=== PATIENT | female | born 1990 | race Caucasian/White ===

== ENCOUNTER 2024-01-23 02:58 | Emergency (ER) | payer SELFPAY ==
[2024-01-23 04:10] LABS: #Basophils 0.05 10x3/uL (0.0-0.2); #Eosinphils Less than 0.03 10x3/uL (0.0-0.7); %Basophils 0.3 % (0.0-1.0); %Eosinophils 0.1 % (0.0-10.0); %Lymphocytes 14.7 % (21.0-51.0); %Neutrophils 83.6 % (42.0-75.0); Hematocrit 39.8 % (36.0-47.0); Hemoglobin 14.6 g/dL (12.0-16.0); Mean Corpuscular HGB CONC 36.7 g/dL (32.0-36.0); Mean Corpuscular Hemoglobin 34.1 pg (27.0-31.0); Mean Platelet Volume 9.5 fL (7.4-10.4); Platelet Count 327 10x3/uL (130-400); RBC Distribution Width 11.7 % (11.5-14.5); Red Blood Cell (RBC) Count 4.28 mill/uL (4.20-5.40)
[2024-01-23 04:31] LABS: Lipase 7 U/L (8-78)
[2024-01-23 04:33] LABS: ALT (SGPT) 10 U/L (8-55); AST (SGOT) 29 U/L (5-34); Albumin 4.6 g/dL (3.5-5.0); Alkaline Phosphatase 69 U/L (40-110); Anion Gap 29 mmol/L (10-20); BUN (Urea Nitrogen) 18 mg/dL (7.0-18.7); Bilirubin, Total 0.5 mg/dL (0.2-1.2); Calc. Creatinine Clearance 0 mL/min (70-130); Calcium 9.6 mg/dL (7.8-10.44); Carbon Dioxide 12 mmol/L (22-29); Chloride 104 mmol/L (98-107); Estimated GFR 99; Globulin 3.9 g/dL (2.4-3.5); Glucose 64 mg/dL (70-105); Potassium 3.9 mmol/L (3.5-5.1); Protein, Total 8.5 g/dL (6.0-8.3); Sodium 141 mmol/L (136-145)
[2024-01-23 04:34] LABS: Acetaminophen Less than 10 mcg/mL (10.0-30.0); Alcohol 285.4 mg/dL (Less than 10); Salicylate Less than 8.0 mg/dL (15.0-30.0)
[2024-01-23] MEDS ORDERED: Ondansetron PF 4 MG/2 ML Vial ONE (04:46)
[2024-01-23] MEDS ORDERED: Ketorolac Tromethamine 30 MG (1 mL) VIAL ONE ×2 (04:46→08:21)
[2024-01-23] MEDS ORDERED: Lidocaine 2% Viscous 10 mL, Alum & Magn 30 mL SSW SCH (08:00)
[2024-01-23 08:31] LABS: Amphetamine Not Detected (NotDetected); Barbiturates Screen Not Detected (NotDetected); Benzodiazepine Screen Not Detected (NotDetected); Cocaine Metabolite Screen Not Detected (NotDetected); Methadone Not Detected (NotDetected); Methamphetamine Not Detected (NotDetected); Opiate Screen Not Detected (NotDetected); Oxycodone Screen Not Detected (NotDetected); Phencyclidine (PCP) Not Detected (NotDetected); THC/Cannabinoid Screen Not Detected (NotDetected); Tricyclic Screen Not Detected (NotDetected)
[2024-01-23 08:34] LABS: Bilirubin Negative (Negative); Blood, Urine 1+ (Negative); CAUTI Indications for Culture < 2yrs of age; Clarity Clear (Clear); Glucose, Urine (Dipstick) Normal (Negative); Ketone, Urine 100 mg/dL (Negative); Leukocyte Negative Leu/uL (Negative); Nitrite Negative (Negative); Protein, Urine (Dipstick) 100 mg/dL (Neg-Trace); RBC/HPF 0-3 HPF (0-3); Squamous Epithelial 0-3 HPF (0-3); Urobilinogen Normal mg/dL (Less than 2); pH, Urine 5.5 (5.0-9.0)
[2024-01-23 08:36] LABS: Bacteria/HPF 1+ HPF (None Seen)
[2024-01-23 08:37] LABS: Urine Culture Reflex Yes Yes
== END 2024-01-23 10:21 | disposition home or self-care (01) ==
LOC: ERS 02:58
DX: R10.13 Epigastric pain (principal); F10.129 Alcohol abuse with intoxication, unspecified; E03.9 Hypothyroidism, unspecified; E78.5 Hyperlipidemia, unspecified; Y90.8 Blood alcohol level of 240 mg/100 ml or more; Z55.0 Illiteracy and low-level literacy; Z79.899 Other long term (current) drug therapy
CPT/HCPCS: 80053; 80306; 80307; 81001; 83690; 85025; 87086; 93005; 96374; 96375; 96376; J1885; J2405